=== PATIENT | male | born 1990 | race Hispanic/Latino ===

== ENCOUNTER 2021-05-29 13:09 | Emergency (ER) | payer SELFPAY ==
[~2021-05-29] VITALS: Ht 175.3 cm; Wt 81.3 kg
[2021-05-29] MEDS ORDERED: PROBIOTIC & AC1 EACH PO ×2 (13:42→15:39)
[2021-05-29] MEDS ORDERED: CLINDAMYCIN HC300 MG PO ×2 (13:42→15:39)
[2021-05-29] MEDS ORDERED: IBUPROFEN IB200 MG PO ×2 (13:42→15:39)
[2021-05-29] MEDS ORDERED: DOXYCYCLINE MO100 M1 PO ×2 (13:42→15:39)
== END 2021-05-29 13:54 | disposition home or self-care (01) ==
LOC: FSED 13:15
DX: L08.9 Local infection of the skin and subcutaneous tissue, unspecified (principal)
CPT/HCPCS: 99282